=== PATIENT | female | born 2000 | race Two or more races ===

== ENCOUNTER 2022-02-13 18:00 | Outpatient (CLI) | payer OTHER | END 2022-02-13 18:01 | disposition home or self-care (01) | LOC: SLEEPLAB 18:00 | PROVIDERS: ATTEND Family Medicine | DX: G47.33 Obstructive sleep apnea (adult) (pediatric) (principal); F41.9 Anxiety disorder, unspecified; E66.9 Obesity, unspecified; R06.83 Snoring; Z68.1 Body mass index [BMI] 19.9 or less, adult | CPT/HCPCS: 95800 ==